=== PATIENT | female | born 1965 | race Caucasian/White ===

== ENCOUNTER 2018-01-11 09:10 | Day surgery (SDC) | payer OTHER ==
[2018-01-11] MEDS ORDERED: MIDAZOLAM 1 MG/ML 2 ML INJ ×2 (11:22)
[2018-01-11] MEDS ORDERED: FENTAnyl 50 MCG/ML VIAL (11:22)
== END 2018-01-11 13:56 | disposition home or self-care (01) ==
LOC: GIL 09:10
DX: Z12.11 Encounter for screening for malignant neoplasm of colon (principal); D12.8 Benign neoplasm of rectum; K64.8 Other hemorrhoids; I10 Essential (primary) hypertension; E11.9 Type 2 diabetes mellitus without complications
CPT/HCPCS: 45380; 82962; 88305